=== PATIENT | female | born 1945 | race Caucasian/White ===

== ENCOUNTER 2018-05-30 21:01 | Inpatient (IN) | payer MEDICARE, OTHER ==
[2018-05-30] MEDS ORDERED: Fentanyl 100 MCG/2 ML VIAL ONE (21:33)
[2018-05-30] MEDS ORDERED: Ondansetron HCl/PF 4 MG/2 ML Vial ONE (21:56)
--- NOTE | 2018-05-30 22:16 | RAD ---
TWO VIEWS LEFT HUMERUS: 05/30/18 INDICATION: History of fall with left arm pain. FINDINGS: The exam is compared to prior dated 01/22/09. The previously seen spiral fracture of the proximal left humeral shaft has intervally healed. There h as been interval development of a comminuted fracture involving the distal humeral shaft with two ass ociated butterfly fracture components. No additional fracture is definitely seen. IMPRESSION: Comminuted distal humeral shaft fracture. POS: [facility]
--- NOTE | 2018-05-30 22:23 | RAD ---
TWO VIEWS RIGHT HUMERUS: 05/30/18 INDICATION: fall with deformities of both elbows. FINDINGS: There is heavily comminuted proximal both bone forearm fracture with posterior and lateral dislocatio n of the radial head. There is moderately angulated comminuted fracture involving the proximal ulna. There is comminuted anterior and medial radial head fracture. No acute fracture seen involving the ri ght humerus. IMPRESSION: Comminuted right elbow fracture. Dedicated radiographs to the right elbow recommended. POS: [facility]
[2018-05-30] MEDS ORDERED: traMADol HCl 50 MG TAB PO PRN (22:47)
[2018-05-30] MEDS ORDERED: Ondansetron ODT 4 MG TAB PO PRN (22:48)
[2018-05-30] MEDS ORDERED: Dextrose 50% Abboject 50 ML SYRINGE SLOW IVP PRN (22:48)
[2018-05-30] MEDS ORDERED: Dextrose 5% in Water 1,000 ML IV PRN (22:48)
--- NOTE | 2018-05-30 22:52 | RAD ---
TWO VIEWS OF THE RIGHT ELBOW: 05/30/18 INDICATION: History of fall with elbow pain. FINDINGS: There is posterolateral fracture dislocation of the right elbow. There is a comminuted fracture component involving the medial aspect of the radial head. There is a c omminuted fracture involving the proximal ulna. It is difficult to discern if there is olecranon art icular surface extension on the provided images. Following reduction, a CT of the right elbow may be helpful for improved characterization. IMPRESSION: Fracture dislocation of the right elbow. Please see recommendations above. POS: [facility]
--- NOTE | 2018-05-30 23:20 | CT ---
CT OF THE BRAIN WITHOUT CONTRAST 05/30/18 INDICATION: History of fall with bilateral arm fractures and possible head injury. FINDINGS: No acute infarct, hemorrhage or hydrocephalus is present. Septum pellucidum and third ventricle are m idline. Skull and extracranial soft tissues appear within normal limits. IMPRESSION: No acute intracranial abnormality demonstrated. POS: [facility]
--- NOTE | 2018-05-30 23:38 | RAD ---
TWO AP VIEWS OF THE CHEST: 05/30/18 INDICATION: Fall with chest pain. FINDINGS: The lungs are mildly hyperexpanded but clear. Heart size is within normal limits. No acute osseous ab normality is grossly evident. IMPRESSION: No acute cardiopulmonary abnormality. POS: [facility]
--- NOTE | 2018-05-30 23:40 | RAD ---
THREE VIEWS OF THE LEFT ANKLE: 05/30/18 INDICATION: Ankle pain after falling. FINDINGS: There is a nondisplaced transverse oriented fracture involving the lateral malleolus. Ankle mortise a nd talar dome appear preserved. There is enthesopathic change off the posterior and plantar calcaneus . The visualized hindfoot appears within normal limits. IMPRESSION: Nondisplaced transverse oriented lateral malleolar fracture. POS: [facility]
[2018-05-30] MEDS ORDERED: hydrALAZINE 20 MG/ML VIAL SLOW IVP PRN (23:41)
[2018-05-30 23:53] LABS: #Eosinphils 0.1 thou/uL (0.0-0.7); #Lymphocytes 1.1 thou/uL (1.20-3.40); #Monocytes 1.1 thou/uL (0.11-0.59); #Neutrophils 13.2 thou/uL (1.40-6.50); %Basophils 0.2 % (0.0-1.0); %Eosinophils 0.4 % (0.0-10.0); %Lymphocytes 7.2 % (21.0-51.0); %Monocytes 7.1 % (0.0-10.0); %Neutrophils 85.1 % (42.0-75.0); Hemoglobin 11.9 g/dL (12.0-16.0); Mean Corpuscular HGB CONC 33.6 g/dL (32.0-36.0); Mean Corpuscular Hemoglobin 30.1 pg (27.0-31.0); Mean Corpuscular Volume 89.6 fL (78.0-98.0); Mean Platelet Volume 9.5 fL (7.4-10.4); Platelet Count 161 thou/uL (130-400); Red Blood Cell (RBC) Count 3.95 mill/uL (4.20-5.40); White Blood Cell (WBC) Count 15.6 thou/uL (4.8-10.8)
[2018-05-31 00:04] LABS: PTT 25.1 SEC (22.9-36.1); Prothrombin Time 13.3 SEC (12.0-14.7)
[2018-05-31 00:06] LABS: Anion Gap 18 mmol/L (10-20); BUN (Urea Nitrogen) 19 mg/dL (9.8-20.1); Calc. Creatinine Clearance 0 mL/min (70-130); Calcium 9.2 mg/dL (7.8-10.44); Carbon Dioxide 20 mmol/L (23-31); Chloride 103 mmol/L (98-107); Estimated GFR-MDRD 72; Glucose 143 mg/dL (83-110); Magnesium 1.7 mg/dL (1.6-2.6); Phosphorus 2.7 mg/dL (2.3-4.7); Potassium 3.2 mmol/L (3.5-5.1); Sodium 138 mmol/L (136-145)
[2018-05-31 00:13] LABS: CKMB 1.5 ng/mL (0-6.6); Troponin I Less than 0.010 ng/mL (< 0.028)
[2018-05-31 00:29] VITALS: BMI 28.8
[2018-05-31] MEDS: Acetaminophen 1,000 MG in Premix Bag 1 BAG IVPB SCH ×5 (00:52→23:39)
[2018-05-31] MEDS: Sodium Chloride 0.9% 1,000 ML IV SCH ×3 (00:52→16:34)
[2018-05-31] MEDS: traMADol HCl 50 MG TAB PO SCH ×5 (01:06→23:38)
[2018-05-31] MEDS: Ketorolac Tromethamine 15 MG/ML VIAL IVP SCH ×2 (02:15→07:39)
--- NOTE | 2018-05-31 03:15 | HP ---
DATE OF ADMISSION: 05/30/2018 ATTENDING PHYSICIAN: Dr. Henriquez. TRAUMA ACTIVATION: Level 2. HISTORY OF PRESENT ILLNESS: This is a 73-year-old female who presented to [facility] via EMS stat us post fall. Per patient, she was ambulating in her garage when she became unsteady, twisting her l eft ankle and fell. She did have head trauma but denied loss of consciousness. She was evaluated in the emergency room and found to have a left humerus fracture and a right elbow fracture. Orthopedic Surgery was notified and Trauma Services was asked to admit. Upon my evaluation, the patient had a chief complaint of 6/10 pain in her bilateral upper extremities and left ankle. Of note, the patient was also found to be a new atrial fibrillation. ALLERGIES: SULFA, PENICILLINS, and NORCO. HOME MEDICATIONS: Include Toprol-XL 50 mg p.o. at bedtime, triamterene -hydrochlorothiazide 37.5-25, oxybutynin 10 mg p.o. daily, benazepril 20 mg p.o. daily. PAST MEDICAL HISTORY: Significant for mitral valve prolapse, hypertension, and urinary incontinence. PAST SURGICAL HISTORY: Significant for bilateral knee replacements and hysterectomy. 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 Endorses occasional alcohol use. Denies tobac co or illicit drug use. FAMILY HISTORY: Significant for daughter and granddaughter with atrial fibrillation and father who d eceased from coronary artery disease. REVIEW OF SYSTEMS: Ten-point review of systems was obtained essentially negative except as indicated in the HPI with the exception of fatigue for the last 2-3 weeks, which she attributes to increasing her activity after her last knee replacement. PHYSICAL EXAMINATION: VITAL SIGNS: Blood pressure 177/81, pulse 95, respiration rate 18, O2 sat 100% on room air, pain 6/1 0, temperature 97.6. GENERAL: Well-developed female in no acute distress, resting in bed. HEENT: Head, normocephalic. There is a right frontal contusion Eyes: Pupils are PERRL. Extraocul ar movements are intact. NECK: Supple. Trachea is midline. There is no midline tenderness to palpation. Range of motion wi thin normal limits for patient. CHEST/PULMONARY: Atraumatic, nontender to palpation with normal work of breathing, symmetric rise. Lungs are clear to auscultation bilaterally. CARDIOVASCULAR: Irregularly irregular. No obvious murmurs, rubs, or gallops. GASTROINTESTINAL: Soft, nontender, nondistended. MUSCULOSKELETAL: Pelvis is stable. BACK: Reported as being within normal limits. EXTREMITIES: Bilateral upper extremity splints are clean, dry, and intact. She has good capillary r efill bilaterally. There is no sensory deficits. Left ankle is bruise with limited range of motion and tenderness with passive range of motion. Right lower extremity is within normal limits. NEUROLOGIC: GCS of 15. No focal deficit is noted. LABORATORY DATA: Pending. EKG significant for atrial fibrillation, rate controlled with nonspecific ST abnormalities. RADIOLOGIC FINDINGS: Chest x-ray without acute cardiopulmonary process. Right upper extremity x-ray with comminuted right elbow fracture. Left upper extremity x-ray with distal humerus shaft fracture . Right elbow x-ray showed fracture dislocation of the right elbow. CT of the brain was negative fo r acute intracranial abnormality. ASSESSMENT: 1. Status post fall. 2. Acute traumatic pain. 3. Right elbow fracture dislocation. 4. Left humerus fracture. 5. Left ankle pain and swelling status post fall. 6. Newly diagnosed atrial fibrillation. 7. Hypertension. PLAN: Follow up laboratory findings. Add electrolytes, TSH, cardiac enzymes, and BNP to laboratory studies. Echocardiogram. Left ankle x-ray follow. Reconcile home medications. I hav e discussed the case with Orthopedic Surgery. They hope for operative intervention tomorrow, pending cardiac workup. Patient should be n.p.o. after midnight with gentle IV fluid hydration. Perioperat aiden pain management with p.o. and IV analgesics. Postoperative PT and OT. Patient should be screene d for inpatient rehabilitation given multiple traumatic injuries and likely limited ability to perfor m ADLs once postoperative. P.r.n. antihypertensives. Plan for admission was discussed with patient and family at bedside. All questions were answered at the time of this dictation. Trauma attending has been notified of admission. Further plan, once laboratory findings have resulted.
[2018-05-31 05:26] LABS: #Lymphocytes 1.6 thou/uL (1.20-3.40); #Monocytes 0.8 thou/uL (0.11-0.59); #Neutrophils 8.5 thou/uL (1.40-6.50); %Basophils 0.2 % (0.0-1.0); %Eosinophils 0.1 % (0.0-10.0); %Lymphocytes 14.4 % (21.0-51.0); %Monocytes 7.7 % (0.0-10.0); %Neutrophils 77.7 % (42.0-75.0); Hemoglobin 11.2 g/dL (12.0-16.0); Mean Corpuscular HGB CONC 34.8 g/dL (32.0-36.0); Mean Corpuscular Hemoglobin 31.4 pg (27.0-31.0); Mean Corpuscular Volume 90.3 fL (78.0-98.0); Platelet Count 171 thou/uL (130-400); Red Blood Cell (RBC) Count 3.55 mill/uL (4.20-5.40); White Blood Cell (WBC) Count 10.9 thou/uL (4.8-10.8)
[2018-05-31 05:35] LABS: Anion Gap 14 mmol/L (10-20); BUN (Urea Nitrogen) 15 mg/dL (9.8-20.1); Calc. Creatinine Clearance 93 mL/min (70-130); Calcium 8.5 mg/dL (7.8-10.44); Carbon Dioxide 24 mmol/L (23-31); Chloride 102 mmol/L (98-107); Estimated GFR-MDRD 87; Glucose 122 mg/dL (83-110); Magnesium 1.6 mg/dL (1.6-2.6); Phosphorus 3.7 mg/dL (2.3-4.7); Potassium 3.6 mmol/L (3.5-5.1); Sodium 136 mmol/L (136-145)
[2018-05-31] MEDS ORDERED: Ketorolac Tromethamine 30 MG/ML VIAL ONE (09:14)
[2018-05-31] MEDS ORDERED: Fentanyl 100 MCG/2 ML VIAL ONE ×4 (09:14→14:14)
[2018-05-31] MEDS ORDERED: Clindamycin/D5W 900 mg/50 ml Premix Bag ONE (09:43)
[2018-05-31] MEDS ORDERED: Levofloxacin 500 mg/D5W 100 ml Premix Bag ONE (09:43)
[2018-05-31] MEDS ORDERED: Fentanyl 250 MCG/5 ML VIAL ONE (09:55)
[2018-05-31] MEDS: Famotidine/PF 20 mg/2ml Vial SLOW IVP SCH ×2 (09:57→21:12)
--- NOTE | 2018-05-31 10:41 | CON ---
DATE OF CONSULTATION: 05/31/2018 CHIEF COMPLAINT: Bilateral arm pain. HISTORY OF PRESENT ILLNESS: Ms. Celeste is a 73-year-old female who fell at home. She tripped on a step in her garage. She landed face first. She tried to catch herself with her arms; however, she had fractures of the arms. She then struck her head. She was admitted to the hospital last night as a trauma activation. She has been splinted. She is resting comfortably currently in the hospital b ed. Pain is controlled. She has received pain medications, but is very sensitive to morphine and ot her narcotics. She did have some nausea. ALLERGIES: SULFA, PENICILLIN, NORCO. HOME MEDICATIONS: Toprol, hydrochlorothiazide, oxybutynin, benazepril. PAST MEDICAL HISTORY: Mitral valve prolapse, hypertension and urinary incontinence. PAST SURGICAL HISTORY: Bilateral knee replacements recently approximately 4 months ago, her right kn ee was done, previous hysterectomy. SOCIAL HISTORY: The patient denies tobacco, alcohol or drug use. FAMILY MEDICAL HISTORY: Noncontributory. REVIEW OF SYSTEMS: Positive for pain in the bilateral upper extremities as well as left ankle, other nguyen negative for 10 point review of systems. PHYSICAL EXAMINATION: VITAL SIGNS: Temperature is 98.2, pulse is 70, respiratory rate 16, oxygen saturation 99%, blood pre ssure 169/72. GENERAL: She is alert and oriented, no apparent distress, sitting with head of bed elevated. HEENT: She has ecchymosis over the forehead, otherwise atraumatic. RESPIRATORY: Breathing comfortably. ABDOMEN: Soft, nontender and nondistended. CARDIOVASCULAR: Pulses palpable peripherally and regular. MUSCULOSKELETAL: The patient's bilateral upper extremities are splinted. She is able to flex and ex tend the digits and has normal sensation in the hands to light touch. Two second capillary refill. Palpable radial pulses. Splints are clean and dry. Left lower extremity has swelling over the later al malleolus with ecchymosis and tenderness to palpation over the tip of the lateral malleolus. Knee s have no swelling or effusion. Well-healed surgical scars. PLAN: The patient will need to go to the operating room today. She will need open reduction interna l fixation of her right elbow to include olecranon fracture fixation and possible radial head or capi tellum fixation depending on operative findings. She will need reduction of her elbow dislocation. She has a left distal humerus fracture that will need open reduction internal fixation to restore heladio tomic alignment. I have reviewed operative plan with her as well as risk. She is aware of risk of r adial nerve injury or palsy, infection, nonunion, malunion, posttraumatic arthritis and others. She is having ongoing cardiac workup and echocardiogram has been ordered. She will have ongoing fluid re suscitation and pain management. She will have DVT prophylaxis and antibiotic prophylaxis as well.
[2018-05-31] MEDS ORDERED: Ketorolac Tromethamine 30 MG/ML VIAL IVP SCH (12:00)
[2018-05-31] MEDS ORDERED: PHENYLEPHRINE-NS 100 MCG/ML 10 ML SYRINGE ONE (13:24)
[2018-05-31] MEDS ORDERED: Glycopyrrolate 0.2 MG/ML 5 ML SYRINGE ONE (13:24)
[2018-05-31] MEDS ORDERED: Ondansetron HCl/PF 4 MG/2 ML Vial ONE (13:24)
[2018-05-31] MEDS ORDERED: PROPOFOL 200 MG/20 ML VIAL ONE (13:24)
[2018-05-31] MEDS ORDERED: Lidocaine 1% PF 5 ML VIAL ONE (13:24)
[2018-05-31] MEDS ORDERED: Dexamethasone 20 MG/5 ML VIAL ONE (13:24)
[2018-05-31] MEDS ORDERED: Meperidine HCl/PF 25 MG/ML VIAL SLOW IVP PRN (13:30)
[2018-05-31] MEDS ORDERED: Ondansetron HCl/PF 4 MG/2 ML Vial IVP PRN (13:30)
[2018-05-31] MEDS ORDERED: Promethazine HCl 25 MG/ML VIAL IM PRN (13:30)
[2018-05-31] MEDS ORDERED: HYDROmorphone 2 MG/ML VIAL SLOW IVP PRN (13:30)
[2018-05-31] MEDS ORDERED: Promethazine HCl 25 MG/ML VIAL SLOW IVP PRN (13:30)
--- NOTE | 2018-05-31 15:07 | RAD ---
RADIGRAPH LEFT HUMERUS 2 VIEWS: Date: 05/31/18 HISTORY: 73-year-old female with left humerus fracture. COMPARISON: 05/30/18. FINDINGS: These are small field of view fluoroscopic spot images obtained with C-arm in the OR. The comminuted, displaced, acute fracture of the distal humeral diaphysis and metaphysis, has been reduced, and now fixated with long metallic plate and multiple screws. There is partial visualization of the old, heal ed fracture deformity of the mid diaphysis. IMPRESSION: Open reduction and internal fixation of acute, traumatic, comminuted, displaced distal left radial me tadiaphyseal fracture. POS: [facility]
--- NOTE | 2018-05-31 15:09 | OP ---
DATE OF PROCEDURE: 05/31/2018 OPERATIONS: 1. Open reduction and internal fixation of right olecranon fracture with open reduction of elbow dis location. 2. Open reduction internal fixation of left distal humerus fracture. PREOPERATIVE DIAGNOSES: 1. Right elbow dislocation with olecranon fracture and radial head fracture. 2. Left distal humerus fracture. POSTOPERATIVE DIAGNOSES: 1. Right elbow dislocation with olecranon fracture and radial head fracture. 2. Left distal humerus fracture. COMPLICATIONS: None. ESTIMATED BLOOD LOSS: Minimal. SURGEON: Jean Paul Mckeon M.D. DIRECTOR OF EVENTS: Fredi Ennis PA-C. IMPLANTS: Synthes olecranon plate variable angle locking and Synthes 3.5 mm posterior lateral distal humerus plate with multiple locking and nonlocking screws. INDICATIONS: Ms. Celeste is a 73-year-old female who fell. She sustained the above injuries. She was indicated for open reduction and internal fixation of the fracture to restore anatomic alignment and promote healing. Risks have been reviewed in detail. She has elected to proceed with the operat ion. Risks are extensive and include post-traumatic arthritis, nerve or vascular injury, PE, DVT, wo und complication, hardware failure and others. DESCRIPTION OF PROCEDURE: Ms. Celeste was identified in the preoperative holding area. Her correct extremity was marked. She was carried to the operating room. She was positioned supine. General a nesthesia was induced. A multidisciplinary timeout was performed. The bilateral upper extremities w ere prepped and draped in sterile fashion after the patient was positioned in the prone position. At this point, we started on the right arm. We inflated a tourniquet. We then made a posterior incisi on over the olecranon fracture. We dissected down through the subcutaneous tissues to the bony level . At this point, we exposed the fracture fragments. The fracture was highly comminuted and displace d. We exposed the underlying elbow joint. The joint was clearly dislocated. There was damage to th e capitellum as well as the radial head. The radial head has small fragments, which were excised. T he capitellum had a posterior indentation. We reduced the elbow at this point after thorough irrigat ion. At this point, we reduced the olecranon fracture back into an anatomic position using K-wires and red uction clamps. A Synthes olecranon plate was placed posteriorly. We placed multiple locking screws proximally and distally holding all fragments. We also used interfragmentary screws which were 2.7 n onlocking. We took images confirming hardware placement and reduction. There were no complications. At this point, the elbow was splinted carefully in a reduced position. Again, we took x-ray images . We then moved to the left arm. The left arm was prepped and draped in sterile fashion. We made a po sterior approach to the distal humerus. We dissected down through the subcutaneous tissue to the fas eugenia which was opened. The triceps was split. This brought us directly down onto the fracture and ex posed the fracture fragments. We thoroughly irrigated with copious lavage. We then reduced the dist al humerus fracture, holding this with multiple K wires and clamps. We placed two interfragmentary s crews. We then applied a Synthes posterolateral plate along the posterolateral surface. Multiple sc rews were placed proximally and distally as well as in the interfragmentary components. Again, we to ok x-ray images confirming all hardware was placed appropriately. There were no complications. The fracture was reduced well. We thoroughly irrigated with copious lavage. We then closed with #2-0 Vi cryl suture and kayla for the skin. A sterile dressing was applied. The patient was taken to the recovery room in good condition without complication.
--- NOTE | 2018-05-31 15:10 | RAD ---
INTRAOPERATIVE IMAGING OF THE RIGHT ELBOW: Date: 05-31-18 History: ORIF FINDINGS: Four intraoperative images are provided. Imaging demonstrates a screw/plate fixation treating an obli quely oriented proximal right ulnar shaft fracture. No evidence for dislocation. Post-operative gas noted. Cutaneous kayla are seen dorsally. IMPRESSION: ORIF as above. POS: [facility]
[2018-05-31] MEDS: Clindamycin/D5W 900 MG in Premix Bag 1 BAG IVPB SCH ×2 (15:35→21:12)
[2018-05-31] MEDS: Ketorolac Tromethamine 30 MG/ML VIAL IVP SCH ×2 (16:18→21:11)
[2018-05-31] MEDS: Ondansetron HCl/PF 4 MG/2 ML Vial IVP PRN ×2 (16:33→21:33)
--- NOTE | 2018-05-31 18:12 | PRG ---
DATE OF SERVICE: 05/31/2018 ATTENDING PHYSICIAN: Alberto Shaw DO SUBJECTIVE: Ms. Celeste is a 73-year-old female who presented to [facility] ye sterday after she fell in her garage. Workup in the emergency department identified right elbow frac ture dislocation, left humerus fracture, and fracture of the left lateral malleolus. She was admitte d to the hospital by Trauma Services. She was taken to the OR today by Dr. Mckeon. She is now se en postoperatively. Her left lateral malleolus fracture will be managed nonoperatively with a boot. She underwent ORIF of her right olecranon fracture with open reduction of her elbow dislocation and open reduction internal fixation of her left distal humerus fracture today. She remained hemodynamic ally stable throughout her surgery. She was also noted to be in Afib in the ER. She has never been diagnosed with atrial fibrillation. She has a history of hypertension for which she takes Toprol 50 mg p.o. at bedtime, triamterene/hydrochlorothiazide 37.5/25 and benazepril 20 mg. She also has histo ry of mitral valve prolapse and urinary incontinence. She reports that her pain is only partially co ntrolled. She is not in any distress. OBJECTIVE: VITAL SIGNS: Temperature 98.1, blood pressure 159/69, pulse 80, respirations 16, O2 sat 98% on 2 lit ers nasal cannula. GENERAL: Well-developed, well-nourished female lying in bed in no acute distress. HEENT: Atraumatic, normocephalic. CHEST: No respiratory distress. RESPIRATORY: Even unlabored. 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 ABDOMEN: Soft, nontender, nondistended. MUSCULOSKELETAL: Bilateral upper extremity splint in place. Left lower extremity orthopedic boot in place. Cap refill brisk in all extremities. Neurovascular intact all extremities. NEUROLOGIC: GCS 15. Awake, alert, oriented x3. No focal deficit. ASSESSMENT: 1. Status post ground level fall. 2. Newly diagnosed atrial fibrillation. 3. Right elbow dislocation with olecranon fracture and radial head fracture. 4. Left distal humerus fracture. 5. Left lateral malleolus fracture. 6. History of hypertension. PLAN: 1. Schedule pain medicine to alternate around the clock. 2. Discontinue IV fluids when tolerating p.o. 3. Echocardiogram pending. 4. Monitor a.m. labs. 5. Restart home medications as appropriate. This patient was reviewed with Dr. Shaw who agrees with plan.
[2018-06-01] MEDS: Ketorolac Tromethamine 30 MG/ML VIAL IVP SCH ×3 (03:05→15:16)
[2018-06-01 05:16] LABS: Anion Gap 11 mmol/L (10-20); BUN (Urea Nitrogen) 13 mg/dL (9.8-20.1); Calc. Creatinine Clearance 95 mL/min (70-130); Calcium 7.9 mg/dL (7.8-10.44); Carbon Dioxide 22 mmol/L (23-31); Chloride 104 mmol/L (98-107); Estimated GFR-MDRD 90; Glucose 129 mg/dL (83-110); Magnesium 1.5 mg/dL (1.6-2.6); Phosphorus 2.9 mg/dL (2.3-4.7); Potassium 3.6 mmol/L (3.5-5.1); Sodium 133 mmol/L (136-145)
[2018-06-01] MEDS: traMADol HCl 50 MG TAB PO SCH ×4 (05:44→23:28)
[2018-06-01] MEDS: Sodium Chloride 0.9% 1,000 ML IV SCH (05:46)
[2018-06-01 06:11] LABS: #Lymphocytes 1.1 thou/uL (1.20-3.40); #Monocytes 1.1 thou/uL (0.11-0.59); #Neutrophils 6.3 thou/uL (1.40-6.50); %Basophils 0.1 % (0.0-1.0); %Lymphocytes 12.7 % (21.0-51.0); %Monocytes 12.9 % (0.0-10.0); %Neutrophils 74.2 % (42.0-75.0); Hemoglobin 9.7 g/dL (12.0-16.0); Mean Corpuscular HGB CONC 33.2 g/dL (32.0-36.0); Mean Corpuscular Hemoglobin 30.4 pg (27.0-31.0); Mean Corpuscular Volume 91.7 fL (78.0-98.0); Mean Platelet Volume 10.2 fL (7.4-10.4); Platelet Count 159 thou/uL (130-400); RBC Distribution Width 11.2 % (11.5-14.5); White Blood Cell (WBC) Count 8.5 thou/uL (4.8-10.8)
[2018-06-01] MEDS ORDERED: Potassium Chloride 40 MEQ, Magnesium Sulfate 2 GM in Sodium Chloride 0.9% 250 ML 250 ML IVPB SCH (07:45)
[2018-06-01] MEDS: Enoxaparin Sodium 40 MG/0.4 ML SYRINGE SC SCH (08:36)
[2018-06-01] MEDS: Famotidine/PF 20 mg/2ml Vial SLOW IVP SCH ×2 (08:36→20:45)
[2018-06-01] MEDS: Acetaminophen 500 MG TAB PO SCH ×3 (09:41→20:45)
[2018-06-01] MEDS ORDERED: Ibuprofen 600 MG TAB PO SCH (17:00)
--- NOTE | 2018-06-01 18:03 | PRG ---
DATE OF SERVICE: 06/01/2018 ATTENDING PHYSICIAN: Dr. Alberto Shaw. SUBJECTIVE: Ms. Celeste is a 73-year-old lady who had a ground level fall. She is now postoperativ e day #1, status post bilateral upper extremity ORIF. Left ankle fracture is managed in an orthopedi c boot. She was admitted to the hospital by Trauma Services. She was noted to be in atrial fibrilla tion on workup in the emergency department. Rate was controlled. This was a new diagnosis for her. She has not been in atrial fibrillation since she has been on the telemetry floor. She remained hem odynamically stable. Today, she complains of left wrist drop, which began postoperatively this morni ng. OBJECTIVE: VITAL SIGNS: Temperature 98.2, pulse 69, respirations 18, O2 sat 94% on room air, blood pressure 112 /56. GENERAL: Well-developed, well-nourished female, lying in bed, in no acute distress. HEENT: Atraumatic, normocephalic. CARDIOVASCULAR: Regular rate and rhythm. Heart sounds normal. ABDOMEN: Soft, nontender, nondistended. MUSCULOSKELETAL: Bilateral upper extremity splint in place. Left lower extremity orthopedic boot in place. Cap refill brisk in all extremities. Unable to extend left wrist. NEUROLOGIC: No sensory deficit noted. LABORATORY STUDIES: CBC, WBC 8.5, RBC 3.20, hemoglobin 9.7, hematocrit 29.3, platelets 159,000. Luz Elena yelena, sodium 133, potassium 3.6, chloride 104, carbon dioxide 22, BUN 13, creatinine 0.65, glucose 129, calcium 7.9, phosphorus 2.9, magnesium 1.5. ASSESSMENT: 1. Status post ground level fall. 2. Newly diagnosed atrial fibrillation. The patient has been in sinus rhythm since being on telemet ry floor. 3. Right elbow dislocation with olecranon fracture and radial head fracture status post open reducti on internal fixation. 4. Left distal humerus fracture status post open reduction internal fixation. 5. Left lateral malleolus fracture, treated with an orthopedic boot. 6. Postoperative left wrist drop treated with a splint. 7. History of hypertension. PLAN: 1. Continue oral analgesia. 2. Discontinue IV fluids. 3. Continue PT and OT. 4. Correct electrolytes. Monitor and correct as indicated. 5. Case management following for discharge planning. 6. Lovenox for DVT prophylaxis. 7. Pepcid for gastritis prophylaxis. 8. Transition IV pain medicine to oral. The patient was seen and examined with Dr. Shaw, who agrees with plan.
[2018-06-02] MEDS: Acetaminophen 500 MG TAB PO SCH ×3 (02:59→15:39)
[2018-06-02 05:31] LABS: #Eosinphils 0.2 thou/uL (0.0-0.7); #Lymphocytes 1.7 thou/uL (1.20-3.40); %Basophils 0.3 % (0.0-1.0); %Eosinophils 2.5 % (0.0-10.0); %Lymphocytes 18.5 % (21.0-51.0); %Monocytes 11.7 % (0.0-10.0); Hemoglobin 9.7 g/dL (12.0-16.0); Mean Corpuscular HGB CONC 34.1 g/dL (32.0-36.0); Mean Corpuscular Hemoglobin 31.1 pg (27.0-31.0); Mean Corpuscular Volume 91.1 fL (78.0-98.0); Mean Platelet Volume 9.3 fL (7.4-10.4); Platelet Count 150 thou/uL (130-400); RBC Distribution Width 11.1 % (11.5-14.5); Red Blood Cell (RBC) Count 3.11 mill/uL (4.20-5.40); White Blood Cell (WBC) Count 8.9 thou/uL (4.8-10.8)
[2018-06-02] MEDS: traMADol HCl 50 MG TAB PO SCH ×3 (05:35→17:09)
[2018-06-02 05:50] LABS: Anion Gap 8 mmol/L (10-20); BUN (Urea Nitrogen) 12 mg/dL (9.8-20.1); Calc. Creatinine Clearance 100 mL/min (70-130); Calcium 8.4 mg/dL (7.8-10.44); Carbon Dioxide 23 mmol/L (23-31); Chloride 104 mmol/L (98-107); Estimated GFR-MDRD Greater than 90; Glucose 123 mg/dL (83-110); Magnesium 1.8 mg/dL (1.6-2.6); Phosphorus 2.1 mg/dL (2.3-4.7); Potassium 4.1 mmol/L (3.5-5.1); Sodium 131 mmol/L (136-145)
[2018-06-02] MEDS ORDERED: Non-Formulary Item 1 EACH (Benazepril Hcl [Benazepril Hcl] 20 MG) PO SCH (09:00)
[2018-06-02] MEDS ORDERED: Oxybutynin 5 MG TAB PO SCH (09:00)
[2018-06-02] MEDS ORDERED: Senokot S 8.6-50 MG TAB PO SCH (09:00)
[2018-06-02] MEDS ORDERED: Non-Formulary Item 1 EACH (Triamterene/Hydrochlorothiazid [Triamterene-Hctz 37.5-25 Mg Cp PO SCH (09:00)
[2018-06-02] MEDS ORDERED: Triamterene/Hydrochlorothiazide 37.5 mg/25 mg Tablet PO SCH (09:00)
[2018-06-02] MEDS ORDERED: Polyethylene Glycol 3350 17 GM Packet PO SCH (09:00)
[2018-06-02] MEDS ORDERED: Non-Formulary Item 1 EACH (Oxybutynin Chloride [Oxybutynin Chloride Er] 10 MG) PO SCH (09:00)
[2018-06-02] MEDS: Enoxaparin Sodium 40 MG/0.4 ML SYRINGE SC SCH (09:47)
[2018-06-02] MEDS: Famotidine/PF 20 mg/2ml Vial SLOW IVP SCH (09:48)
[2018-06-02 15:55] VITALS: TEMP 98.7
[2018-06-02 17:08] VITALS: BP 145/63
== END 2018-06-02 17:52 | DRG 493 ==
LOC: ERS 21:01 → 2NO 22:21
PROVIDERS: ADMIT Specialist; ATTEND Specialist
PROC: 0PSK04Z Reposition Right Ulna with Internal Fixation Device, Open Approach (ICD-10-PCS; principal; 2018-05-31)
PROC: 0PSG04Z Reposition Left Humeral Shaft with Internal Fixation Device, Open Approach (ICD-10-PCS; 2018-05-31)
DX: S52.031A Displaced fracture of olecranon process with intraarticular extension of right ulna, initial encounter for closed fracture (principal); S42.402A Unspecified fracture of lower end of left humerus, initial encounter for closed fracture; S52.121A Displaced fracture of head of right radius, initial encounter for closed fracture; S82.62XA Displaced fracture of lateral malleolus of left fibula, initial encounter for closed fracture; S00.83XA Contusion of other part of head, initial encounter; M21.332 Wrist drop, left wrist; I10 Essential (primary) hypertension; I34.1 Nonrheumatic mitral (valve) prolapse; R32 Unspecified urinary incontinence; W01.0XXA Fall on same level from slipping, tripping and stumbling without subsequent striking against object, initial encounter; Y92.008 Other place in unspecified non-institutional (private) residence as the place of occurrence of the external cause; I48.91 Unspecified atrial fibrillation; Z88.5 Allergy status to narcotic agent; Z88.0 Allergy status to penicillin; Z88.2 Allergy status to sulfonamides
CPT/HCPCS: 23600; 36415; 36416; 70450; 71045; 76001; 80048; 82553; 83735; 83880; 84100; 84443; 84484; 85025; 85610; 85730; 93005; 93306; 96361; 96365; 96375; 96376; C1713; G0390; G8978-GP-CL; G8979-GP-CJ; G8987-GO-CM; G8988-GO-CK; J0131; J0360; J1100; J1650; J1885; J1956; J2001; J2270; J2405; J2704; J3010; J3475; J3480; J3490; J7050; S0028

== ENCOUNTER 2025-09-26 03:53 | Inpatient (IN) | payer MEDICARE, OTHER ==
[2025-09-26 04:12] LABS: #Basophils Less than 0.03 10x3/uL (0.0-0.2); #Eosinophils 0.14 10x3/uL (0.0-0.7); #Monocytes 0.84 10x3/uL (0.11-0.59); #Neutrophils 12.98 10x3/uL (1.40-6.50); %Basophils 0.1 % (0.0-1.0); %Eosinophils 0.9 % (0.0-10.0); %Lymphocytes 13.9 % (21.0-51.0); %Monocytes 5.2 % (0.0-10.0); %Neutrophils 79.5 % (42.0-75.0); Hematocrit 42.0 % (36.0-47.0); Hemoglobin 13.9 g/dL (12.0-16.0); Mean Corpuscular Hemoglobin 29.3 pg (27.0-31.0); Mean Corpuscular Volume 88.6 fL (78.0-98.0); Platelet Count 237 10x3/uL (130-400); Red Blood Cell (RBC) Count 4.74 mill/uL (4.20-5.40); White Blood Cell (WBC) Count 16.30 10x3/uL (4.8-10.8)
[2025-09-26 04:34] LABS: ALT (SGPT) 16 U/L (Less than 34); AST (SGOT) 38 U/L (11-34); Albumin 4.0 g/dL (3.1-4.5); Alkaline Phosphatase 101 U/L (40-110); Anion Gap 17 mmol/L (10-20); BUN (Urea Nitrogen) 16 mg/dL (9.8-20.1); Bilirubin, Total 0.4 mg/dL (0.3-1.2); Calc. Creatinine Clearance 0 mL/min (70-130); Calcium 9.0 mg/dL (7.8-10.44); Carbon Dioxide 21 mmol/L (23-31); Chloride 107 mmol/L (98-107); Globulin 3.2 g/dL (2.4-3.5); Glucose 147 mg/dL (83-110); Potassium 4.2 mmol/L (3.5-5.1); Sodium 141 mmol/L (136-145)
[2025-09-26] MEDS ORDERED: Famotidine/PF 20 mg/2ml Vial ONE (04:43)
[2025-09-26 07:44] LABS: Bacteria/HPF None Seen HPF (None Seen); CAUTI Indications for Culture Pelvic or flank pain; Glucose, Urine (Dipstick) Normal (Negative); Leukocyte Negative Leu/uL (Negative); Protein, Urine (Dipstick) Negative (Neg-Trace); Specific Gravity, Urine 1.020 (1.002-1.036); WBC/HPF 0-3 HPF (0-3)
[2025-09-26 08:02] LABS: Urine Culture Reflex No No
[2025-09-26] MEDS ORDERED: LevoFLOXacin 750 mg/D5W 150 ml Premix Bag ONE (08:38)
[2025-09-26] MEDS ORDERED: Melatonin 3 MG TAB PO PRN (09:48)
[2025-09-26] MEDS: Acetaminophen 325 MG TAB PO PRN (12:26)
[2025-09-26 12:45] VITALS: BMI 30.2
[2025-09-26 19:00] LABS: Influenza A by NAA Not Detected (NotDetected); Influenza B by NAA Not Detected (NotDetected); SARS-CoV-2 NAA Rapid Test Not Detected (NotDetected)
[2025-09-27 04:19] LABS: Anion Gap 11 mmol/L (10-20); BUN (Urea Nitrogen) 12 mg/dL (9.8-20.1); Calc. Creatinine Clearance 103 mL/min (70-130); Calcium 7.9 mg/dL (7.8-10.44); Carbon Dioxide 20 mmol/L (23-31); Chloride 110 mmol/L (98-107); Glucose 111 mg/dL (83-110); Potassium 3.5 mmol/L (3.5-5.1); Sodium 137 mmol/L (136-145)
[2025-09-27 05:54] LABS: #Basophils Less than 0.03 10x3/uL (0.0-0.2); #Eosinophils Less than 0.03 10x3/uL (0.0-0.7); #Monocytes 0.77 10x3/uL (0.11-0.59); #Neutrophils 4.51 10x3/uL (1.40-6.50); %Basophils 0.1 % (0.0-1.0); %Eosinophils 0.1 % (0.0-10.0); %Lymphocytes 20.8 % (21.0-51.0); %Monocytes 11.5 % (0.0-10.0); %Neutrophils 67.2 % (42.0-75.0); Hematocrit 37.0 % (36.0-47.0); Hemoglobin 11.8 g/dL (12.0-16.0); Mean Corpuscular Hemoglobin 29.2 pg (27.0-31.0); Mean Corpuscular Volume 91.6 fL (78.0-98.0); Platelet Count 179 10x3/uL (130-400); Red Blood Cell (RBC) Count 4.04 mill/uL (4.20-5.40); White Blood Cell (WBC) Count 6.72 10x3/uL (4.8-10.8)
[2025-09-27] MEDS: Enoxaparin 40 MG (0.4 mL) SYRINGE SC SCH (08:51)
[2025-09-27] MEDS: LevoFLOXacin 750 mg/D5W 750 MG in Premix 1 BAG IVPB SCH (08:52)
[2025-09-27] MEDS: Rosuvastatin 10 MG TAB PO SCH (21:53)
[2025-09-27] MEDS: Losartan 25 MG TAB PO SCH (21:54)
[2025-09-28 03:12] LABS: #Basophils Less than 0.03 10x3/uL (0.0-0.2); #Eosinophils 0.19 10x3/uL (0.0-0.7); #Monocytes 0.97 10x3/uL (0.11-0.59); #Neutrophils 3.64 10x3/uL (1.40-6.50); %Basophils 0.3 % (0.0-1.0); %Eosinophils 2.7 % (0.0-10.0); %Lymphocytes 31.5 % (21.0-51.0); %Monocytes 13.7 % (0.0-10.0); %Neutrophils 51.5 % (42.0-75.0); Hematocrit 40.0 % (36.0-47.0); Hemoglobin 12.8 g/dL (12.0-16.0); Mean Corpuscular Hemoglobin 29.0 pg (27.0-31.0); Mean Corpuscular Volume 90.7 fL (78.0-98.0); Platelet Count 193 10x3/uL (130-400); Red Blood Cell (RBC) Count 4.41 mill/uL (4.20-5.40); White Blood Cell (WBC) Count 7.07 10x3/uL (4.8-10.8)
[2025-09-28 04:13] LABS: Anion Gap 12 mmol/L (10-20); BUN (Urea Nitrogen) 5 mg/dL (9.8-20.1); Calc. Creatinine Clearance 106 mL/min (70-130); Calcium 8.2 mg/dL (7.8-10.44); Carbon Dioxide 22 mmol/L (23-31); Chloride 110 mmol/L (98-107); Glucose 145 mg/dL (83-110); Magnesium 1.7 mg/dL (1.6-2.6); Potassium 3.2 mmol/L (3.5-5.1); Sodium 141 mmol/L (136-145)
[2025-09-28] MEDS: Famotidine 20 MG TAB PO SCH (08:36)
[2025-09-28] MEDS: Aspirin 81 mg Enteric Coated Tablet PO SCH (08:36)
[2025-09-28] MEDS: Magnesium 2 GM/50 ML(in water) 2 GM in Premix 1 BAG IVPB SCH (09:51)
[2025-09-28] MEDS: dilTIAZem 25 MG/5 ML VIAL SLOW IVP SCH (13:37)
[2025-09-28] MEDS: Enoxaparin 80 MG (0.8 mL) SYRINGE SC SCH (20:52)
[2025-09-29] MEDS: Metoprolol Tartrate 5 MG (5 mL) VIAL IVP SCH (02:05)
[2025-09-29 05:39] LABS: #Basophils 0.04 10x3/uL (0.0-0.2); #Eosinophils 0.24 10x3/uL (0.0-0.7); #Monocytes 0.94 10x3/uL (0.11-0.59); #Neutrophils 3.25 10x3/uL (1.40-6.50); %Basophils 0.6 % (0.0-1.0); %Eosinophils 3.3 % (0.0-10.0); %Lymphocytes 38.2 % (21.0-51.0); %Monocytes 12.9 % (0.0-10.0); %Neutrophils 44.7 % (42.0-75.0); Hematocrit 43.1 % (36.0-47.0); Hemoglobin 13.9 g/dL (12.0-16.0); Mean Corpuscular Hemoglobin 29.1 pg (27.0-31.0); Mean Corpuscular Volume 90.4 fL (78.0-98.0); Platelet Count 218 10x3/uL (130-400); Red Blood Cell (RBC) Count 4.77 mill/uL (4.20-5.40); White Blood Cell (WBC) Count 7.27 10x3/uL (4.8-10.8)
[2025-09-29 05:50] LABS: Anion Gap 15 mmol/L (10-20); BUN (Urea Nitrogen) 7 mg/dL (9.8-20.1); Calc. Creatinine Clearance 110 mL/min (70-130); Calcium 8.7 mg/dL (7.8-10.44); Carbon Dioxide 22 mmol/L (23-31); Chloride 108 mmol/L (98-107); Glucose 119 mg/dL (83-110); Magnesium 2.0 mg/dL (1.6-2.6); Potassium 4.0 mmol/L (3.5-5.1); Sodium 141 mmol/L (136-145)
[2025-09-30 07:05] LABS: #Basophils 0.04 10x3/uL (0.0-0.2); #Eosinophils 0.31 10x3/uL (0.0-0.7); #Monocytes 0.74 10x3/uL (0.11-0.59); #Neutrophils 2.65 10x3/uL (1.40-6.50); %Basophils 0.6 % (0.0-1.0); %Eosinophils 4.5 % (0.0-10.0); %Lymphocytes 45.3 % (21.0-51.0); %Monocytes 10.8 % (0.0-10.0); %Neutrophils 38.7 % (42.0-75.0); Hematocrit 42.2 % (36.0-47.0); Hemoglobin 13.5 g/dL (12.0-16.0); Mean Corpuscular Hemoglobin 29.0 pg (27.0-31.0); Mean Corpuscular Volume 90.6 fL (78.0-98.0); Platelet Count 217 10x3/uL (130-400); Red Blood Cell (RBC) Count 4.66 mill/uL (4.20-5.40); White Blood Cell (WBC) Count 6.86 10x3/uL (4.8-10.8)
[2025-09-30 07:25] LABS: Anion Gap 14 mmol/L (10-20); BUN (Urea Nitrogen) 8 mg/dL (9.8-20.1); Calc. Creatinine Clearance 101 mL/min (70-130); Calcium 8.7 mg/dL (7.8-10.44); Carbon Dioxide 22 mmol/L (23-31); Chloride 106 mmol/L (98-107); Glucose 116 mg/dL (83-110); Magnesium 1.7 mg/dL (1.6-2.6); Potassium 3.6 mmol/L (3.5-5.1); Sodium 138 mmol/L (136-145)
[2025-09-30 15:23] VITALS: BP 137/71; TEMP 97.8
== END 2025-09-30 16:05 | disposition home or self-care (01) | DRG 312 ==
LOC: ERS 03:53 → 2NO 08:39
PROVIDERS: ADMIT Internal Medicine; ATTEND Internal Medicine
DX: R55 Syncope and collapse (principal); J69.0 Pneumonitis due to inhalation of food and vomit; E87.20 Acidosis, unspecified; I25.10 Atherosclerotic heart disease of native coronary artery without angina pectoris; Z66 Do not resuscitate; I34.1 Nonrheumatic mitral (valve) prolapse; I10 Essential (primary) hypertension; I48.91 Unspecified atrial fibrillation; Z96.653 Presence of artificial knee joint, bilateral; F32.A Depression, unspecified; R29.6 Repeated falls; Z98.890 Other specified postprocedural states; Z90.710 Acquired absence of both cervix and uterus; Z95.5 Presence of coronary angioplasty implant and graft; Z88.8 Allergy status to other drugs, medicaments and biological substances; Z88.0 Allergy status to penicillin; Z88.2 Allergy status to sulfonamides; Z91.81 History of falling
CPT/HCPCS: 36415; 71045; 80048; 80053; 81001; 83605; 83735; 84484; 85025; 87040; 87086; 87636; 93005; 93306; 96365; 96375; J1308; J1650; J1956; J2550; J3475; J3480; J7030; J7120